=== PATIENT | female | born 1955 | race Hispanic/Latino ===

== ENCOUNTER 2018-03-24 15:39 | Emergency (ER) | payer MEDICARE ==
[2018-03-24 15:44] VITALS: BMI 16.9
[2018-03-24 15:48] VITALS: BP 155/80; PULSE 89; RESP 18; TEMP 98.2; O2SAT 100
[2018-03-24] MEDS ORDERED: Sodium Chloride 0.9% 1,000 ML IV ONE (15:55)
[2018-03-24] MEDS ORDERED: Piperacillin/Tazobact 3.375 gm 100 ML IV STA (15:56)
[2018-03-24] MEDS ORDERED: Piperacillin/Tazobact 3.375 gm 100 ML IVPB ONE (16:12)
[2018-03-24] MEDS ORDERED: MethylPREDNISolone 40 mg Vial ONE (16:12)
[2018-03-24 16:13] LABS: BASO % 0.6 % (0.0-2.0); EOS # 0.1 K/uL (0.0-0.7); EOS % 0.8 % (0.0-4.0); HEMOGLOBIN 11.7 g/dL (11.0-16.0); LYMPH # 1.1 K/uL (1.0-4.3); LYMPH % 16.6 % (20.0-40.0); MEAN CELL VOLUME 89.1 fL (81.0-99.0); MEAN CORPUSCULAR HEMOGLOBIN 29.2 pg (27.0-31.0); MEAN CORPUSCULAR HGB CONC 32.7 g/dL (33.0-37.0); MEAN PLATELET VOLUME 8.1 fL (7.2-11.7); MONO # 0.4 K/uL (0.0-0.8); MONO % 6.5 % (0.0-10.0); NEUT # 4.9 K/uL (1.8-7.0); NEUT % 75.5 % (50.0-75.0); RBC 4.02 Mil/uL (3.80-5.20); RED CELL DISTRIBUTION WIDTH 17.1 % (11.5-14.5); WHITE BLOOD COUNT 6.5 K/uL (4.8-10.8)
[2018-03-24 16:26] LABS: BLOOD UREA NITROGEN 11 mg/dL (7-17); CALCIUM 9.3 mg/dl (8.6-10.4); GFR NON-AFRICAN AMERICAN > 60
--- NOTE | 2018-03-24 16:31 | RAD ---
PROCEDURE: Left Hand Radiographs. HISTORY: pain COMPARISON: None. FINDINGS: BONES: No acute fracture. JOINTS: Unremarkable. SOFT TISSUES: Normal. OTHER FINDINGS: None. IMPRESSION: No demonstrated fracture or dislocation.
--- NOTE | 2018-03-24 17:00 | C.PDOC ---
History Of Present Illness 63 year old female presents to ED for evaluation of left hand pain, swelling, and redness that gradually developed 3-4 days ago. Pt unable to recall any trauma or injury, reports " first felt itchy over my 3rd knuckle, I thought maybe it was insect bite". Otherwise, pt denies fever, chills, recent illness, sore throat, CP, cough, SOB, dyspnea, diaphoresis, abd. pain, N/V, denies deformity, weakness, sensory or vascular deficits to left hand. Ambulate to Ed for evaluation, not in any apparent distress. Time Seen by Provider: 03/24/18 15:50 Chief Complaint (Nursing): Finger,Hand,&Wrist History Per: Patient History/Exam Limitations: no limitations Onset/Duration Of Symptoms: Days Current Symptoms Are (Timing): Still Present Past Medical History Reviewed: Historical Data, Nursing Documentation, Vital Signs Vital Signs: Last Vital Signs Temp 98.2 F 03/24/18 15:44 Pulse 89 03/24/18 15:44 Resp 18 03/24/18 15:44 BP 155/80 H 03/24/18 15:44 Pulse Ox 100 03/24/18 17:32 - Medical History PMH: Bronchitis Surgical History: No Surg Hx Family History: States: No Known Family Hx - Social History Hx Alcohol Use: Yes Hx Substance Use: No - Immunization History Hx Tetanus Toxoid Vaccination: No Hx Influenza Vaccination: No Hx Pneumococcal Vaccination: No Review Of Systems Except As Marked, All Systems Reviewed And Found Negative. Constitutional: Negative for: Fever, Chills Musculoskeletal: Positive for: Hand Pain (Left hand pain, swelling, and redness. ) Neurological: Negative for: Weakness Physical Exam - Physical Exam Appears: Well, Non-toxic, No Acute Distress Skin: Normal Color, Warm, Dry, No Rash, No Ecchymosis, Other ((+) diffuse edema , erythema over dorsal aspect Left hand with mild tenderness over left 3rd MCPJ , no proximal streaking,no flactulance.) Head: Normacephalic Eye(s): bilateral: PERRL Oral Mucosa: Moist Tongue: No Swelling Lips: No Swelling Throat: No Erythema, No Drooling Neck: Trachea Midline, Supple Cardiovascular: Rhythm Regular, No Murmur, No JVD Respiratory: No Decreased Breath Sounds, No Accessory Muscle Use, No Stridor, No Wheezing Gastrointestinal/Abdominal: Soft, No Tenderness, No Distention, No Guarding Back: No CVA Tenderness Extremity: Normal ROM (Left hand, no neurovascular deficits), Tenderness (Mild tenderness over left third metacarpophalangeal joint.), Capillary Refill (Less than 2 seconds to left hand.), No Deformity, Other (Diffuse erythema over dorsal aspect of left hand.) Neurological/Psych: Oriented x3, Normal Speech, Normal Motor, Normal Sensation, Normal Reflexes ED Course And Treatment - Laboratory Results Result Diagrams: 03/24/18 16:09 03/24/18 16:09 Lab Interpretation: No Acute Changes O2 Sat by Pulse Oximetry: 100 (RA) Pulse Ox Interpretation: Normal - Other Rad X-ray left hand X-Ray: Interpreted by Me, Viewed By Me Interpretation: FINDINGS: BONES: No acute fracture. JOINTS: Unremarkable. SOFT TISSUES: Normal. OTHER FINDINGS: None. IMPRESSION: No demonstrated fracture or dislocation. Progress Note: On re-eval, pt is afebrile,hemodynamicaly stable. NOn-toxic. PulseOx 100% RA. Neck: Supple, (-) JVD, (-) carotid bruits B/L. ENT: no acute findings, uvula midline, no edema. Lungs: CTA B/L, Bs equal B/L. CVS: (+)S1S2 , reg. Abd: benign, (-) guarding, (-) rebound. Left hand: mild edema, erythema , tenderness dorsal aspect Left hand, no proximal streaking. Blood work review , no leukocytosis, no left shift. Blood cx- pending. Imaging review- normal study. Pt has clinical findings c/w left hand cellulitis. Pt advised. ref. to f/u with PMD in 2-3 dyas for re-eval. return to ED if any worsening or new changes. Disposition Counseled Patient/Family Regarding: Studies Performed, Diagnosis, Need For Followup, Rx Given - Disposition Referrals: Kelvin Odonnell [Staff Provider] - Disposition: HOME/ ROUTINE Disposition Time: 17:30 Condition: STABLE Additional Instructions: Encourage fluids Take medication as prescribed keep left hand up/elevated Follow up with PMD in 2 days for re-evaluation. if unable to reach PMD, return to ED in 2 days for re-evaluation. return at any time if any worsening or new changes. Prescriptions: Amoxicillin/Clavulanate [Augmentin 875 MG-125 MG] 1 tab PO BID #14 tab Prednisone [Deltasone] 40 mg PO DAILY #6 tablet Instructions: Cellulitis (Skin Infection), Adult (DC) Forms: [email or web address] (Greek) - Clinical Impression Clinical Impression: Cellulitis - PA / COMPLIANCE ASSOCIATE / Resident Statement MD/DO has reviewed & agrees with the documentation as recorded. - Scribe Statement The provider has reviewed the documentation as recorded by the Sheltonibadams Croft All medical record entries made by the Dev were at my direction and personally dictated by me. I have reviewed the chart and agree that the record accurately reflects my personal performance of the history, physical exam, medical decision making, and the department course for this patient. I have also personally directed, reviewed, and agree with the discharge instructions and disposition.
[2018-03-24 17:39] LABS: SQUAMOUS EPITHIAL 1 /hpf (0-5); URINE BILIRUBIN NEGATIVE (NEGATIVE); URINE BLOOD NEGATIVE (NEGATIVE); URINE CLARITY Clear (Clear); URINE COLOR Straw (YELLOW); URINE GLUCOSE (UA) NORMAL (Normal); URINE LEUKOCYTE ESTERASE NEG Leu/uL (Negative); URINE PROTEIN NEGATIVE (NEGATIVE); URINE UROBILINOGEN NORMAL mg/dL (0.2-1.0)
== END 2018-03-24 17:55 | disposition home or self-care (01) ==
LOC: C.ER 15:39
DX: L03.114 Cellulitis of left upper limb (principal)
CPT/HCPCS: 73130; 80048; 81001; 85025; 85651; 87040; 87086; 96365; 96375; 99283; J2543; J2930; J7030

== ENCOUNTER 2018-04-02 11:24 | Emergency (ER) | payer MEDICARE ==
[2018-04-02 11:25] VITALS: BMI 16.9
[2018-04-02 11:50] VITALS: RESP 18
[2018-04-02] MEDS ORDERED: Clindamycin 300 MG in Sodium Chloride 0.9% 50 ML IVPB STA (12:34)
--- NOTE | 2018-04-02 12:44 | C.PDOC ---
History Of Present Illness 63 y/o female presents to ED with c/o redness, swelling and pain to left 3rd mcp area for 10 days. Patient was seen in [facility] on 03/24/18 and diagnosed with cellulitis, given Augmentin. Patient states initially the swelling improved but then it returned. She saw her PMD 4 days ago and given Keflex, reports symptoms have not resolved. Patient denies fever, injury, discharge, change in sensation. PT is right hand dominant. Time Seen by Provider: 04/02/18 12:04 Chief Complaint (Nursing): Finger,Hand,&Wrist History Per: Patient History/Exam Limitations: no limitations Onset/Duration Of Symptoms: Days Past Medical History Reviewed: Historical Data, Nursing Documentation, Vital Signs Vital Signs: Last Vital Signs Temp 98.5 F 04/02/18 14:39 Pulse 77 04/02/18 14:39 Resp 18 04/02/18 11:47 BP 135/77 04/02/18 14:39 Pulse Ox 100 04/03/18 16:13 - Medical History PMH: Bronchitis Surgical History: No Surg Hx Family History: States: No Known Family Hx - Social History Hx Alcohol Use: Yes Hx Substance Use: No - Immunization History Hx Tetanus Toxoid Vaccination: No Hx Influenza Vaccination: No Hx Pneumococcal Vaccination: No Review Of Systems Constitutional: Negative for: Fever, Chills Musculoskeletal: Positive for: Hand Pain Skin: Negative for: Rash, Bruising Physical Exam - Physical Exam Appears: Non-toxic, No Acute Distress Skin: Warm, Dry, No Rash Head: Atraumatic, Normacephalic Eye(s): bilateral: Normal Inspection, EOMI Nose: Normal Oral Mucosa: Moist Neck: Normal ROM, Supple Chest: Symmetrical Respiratory: No Accessory Muscle Use Extremity: Tenderness (to left 3rd MCP), Capillary Refill (<2 seconds), No Deformity, Swelling (to left 3rd MCP), Other (erythema to left 3rd MCP) Pulses: Left Radial: Normal Neurological/Psych: Oriented x3, Normal Speech, Normal Cognition, Normal Motor, Normal Sensation ED Course And Treatment - Laboratory Results Result Diagrams: 04/02/18 13:18 04/02/18 13:18 O2 Sat by Pulse Oximetry: 100 (RA) Pulse Ox Interpretation: Normal Progress Note: Blood work ordered. Clindamycin administered. PT was offered admission for failed outpt abx. Pt refused. Dr Waggoner was consult who requests surgical instrument maker evaluation. residential therapist, Dr Quinteros, evaluated at bedside , instructs to continue abx and warm soaks. PT verbalized understanding, instructed wound check in 2 days. Medical Decision Making Medical Decision Making: The patient declines admission, and wishes to leave the Emergency Department. T he risks of leaving were explained to the patient and include, but are not limited to, worsening of known or currently unknown conditions, permanent disability and from undiagnosed or untreated conditions The patient has the capacity to make this informed decision and understands the clinical situation and my explanation of the risks of leaving. The patient voluntarily accepts these risks. Disposition - Disposition Referrals: Joshua Alves MD [Staff Provider] - Disposition: HOME/ ROUTINE Disposition Time: 14:15 Condition: STABLE Additional Instructions: Continue antibiotics and warm soaks. Follow up with hand specialist in 1 -2 days. Instructions: Cellulitis (Skin Infection), Adult (DC) Forms: (AMA) Informed Refusal, [facility] (Danish) - Clinical Impression Clinical Impression: Cellulitis - PA / MOTOR VEHICLE REPRESENTATIVE / Resident Statement MD/DO has reviewed & agrees with the documentation as recorded. - Scribe Statement The provider has reviewed the documentation as recorded by the Scribe Doug Calix All medical record entries made by the Sheltonibadams were at my direction and personally dictated by me. I have reviewed the chart and agree that the record accurately reflects my personal performance of the history, physical exam, medical decision making, and the department course for this patient. I have also personally directed, reviewed, and agree with the discharge instructions and disposition.
[2018-04-02 13:38] LABS: BASO % 0.5 % (0.0-2.0); EOS # 0.1 K/uL (0.0-0.7); HEMOGLOBIN 11.7 g/dL (11.0-16.0); LYMPH # 1.1 K/uL (1.0-4.3); LYMPH % 11.6 % (20.0-40.0); MEAN CELL VOLUME 88.6 fL (81.0-99.0); MEAN CORPUSCULAR HEMOGLOBIN 29.3 pg (27.0-31.0); MEAN CORPUSCULAR HGB CONC 33.1 g/dL (33.0-37.0); MEAN PLATELET VOLUME 8.4 fL (7.2-11.7); MONO # 0.5 K/uL (0.0-0.8); MONO % 5.7 % (0.0-10.0); NEUT # 7.5 K/uL (1.8-7.0); NEUT % 81.2 % (50.0-75.0); RED CELL DISTRIBUTION WIDTH 16.5 % (11.5-14.5); WHITE BLOOD COUNT 9.3 K/uL (4.8-10.8)
[2018-04-02 13:53] LABS: ALB/GLOB RATIO 1.2 (1.0-2.1); ALBUMIN 3.9 g/dL (3.5-5.0); ALT/SGPT 11 U/L (9-52); AST/SGOT 14 U/L (14-36); BLOOD UREA NITROGEN 9 mg/dL (7-17); CALCIUM 9.3 mg/dl (8.6-10.4); GFR NON-AFRICAN AMERICAN > 60
[2018-04-02 14:40] VITALS: BP 135/77; PULSE 77; TEMP 98.5
[2018-04-03 16:02] VITALS: O2SAT 100
== END 2018-04-02 14:49 | disposition home or self-care (01) ==
LOC: C.ER 11:24
DX: L03.114 Cellulitis of left upper limb (principal)

== ENCOUNTER 2018-08-15 07:55 | Day surgery (SDC) | payer MEDICARE ==
[2018-08-15 08:31] VITALS: TEMP 96.6
[2018-08-15] MEDS ORDERED: Lactated Ringer's 500 ML IV ONE (10:02)
[2018-08-15] MEDS ORDERED: Propofol 10 mg/ml Inj (20 ML) ONE ×3 (10:06→10:40)
[2018-08-15 13:22] VITALS: RESP 24; O2SAT 96
[2018-08-15 13:26] VITALS: BP 105/60; PULSE 86
== END 2018-08-15 12:10 | disposition home or self-care (01) ==
LOC: C.ENDO 07:55
PROVIDERS: ATTEND Internal Medicine Gastroenterology
DX: Z12.11 Encounter for screening for malignant neoplasm of colon (principal); K63.5 Polyp of colon; K64.1 Second degree hemorrhoids; K55.20 Angiodysplasia of colon without hemorrhage; J44.9 Chronic obstructive pulmonary disease, unspecified
CPT/HCPCS: 45380; 45382; 88305; J2704; J7120